=== PATIENT | female | born 1995 | race Two or more races ===

== ENCOUNTER → 2023-05-02 | Outpatient (CLI) | payer BC ==
[2023-05-02 07:44] LABS: Basophils # (auto) 0 10 ^3/uL (0-0.2); Basophils % (auto) 0.2 % (0.0-2.0); Eosinophils # (auto) 0.1 10 ^3/uL (0-0.8); Hematocrit 36.3 % (36.0-46.0); Hemoglobin 12.2 g/dL (12.2-16.2); Lymphocytes % (auto) 19.5 % (10.0-50.0); Mean Corpuscular Hemoglobin 29.8 pg (28.0-32.0); Mean Corpuscular Hgb Conc. 33.5 g/dL (32.0-36.0); Monocytes # (auto) 0.8 10 ^3/uL (0-1.3); Monocytes % (auto) 7.4 % (0.0-12.0); Neutrophils # (auto) 7.5 10 ^3/uL (1.6-8.6); Neutrophils % (auto) 71.9 % (37.0-80.0); Red Blood Cells 4.08 10^6/uL (4.0-5.20); Red Cell Distribution Width 14.5 % (11.8-14.3); White Blood Cell 10.5 10^3/uL (4.4-10.8)
== END | disposition home or self-care (01) ==
LOC: LAB 07:26
PROVIDERS: ATTEND Obstetrics & Gynecology
DX: O99.810 Abnormal glucose complicating pregnancy (principal); Z3A.00 Weeks of gestation of pregnancy not specified
CPT/HCPCS: 36415; 82951; 83036; 85025

== ENCOUNTER 2023-07-19 11:55 | Observation (INO) | payer BC ==
[~2023-07-19] VITALS: Ht 157.5 cm; Wt 75.3 kg
== END 2023-07-19 13:21 | disposition home or self-care (01) ==
LOC: LDRP 11:55 → UNDOADMOB 11:55 → LDRP 12:09
PROVIDERS: ADMIT Obstetrics & Gynecology; ATTEND Obstetrics & Gynecology
DX: O48.0 Post-term pregnancy (principal); Z3A.40 40 weeks gestation of pregnancy
CPT/HCPCS: 59025; 76818; 81002; G0378

== ENCOUNTER 2023-07-21 07:27 | Observation (INO) | payer BC ==
[2023-07-21] MEDS ORDERED: PREN-96 PO (10:28)
== END 2023-07-21 11:30 | disposition home or self-care (01) ==
LOC: LDRP 10:03 → UNDOADMOB 10:03 → LDRP 10:25
PROVIDERS: ADMIT Obstetrics & Gynecology; ATTEND Obstetrics & Gynecology
DX: O48.0 Post-term pregnancy (principal); Z3A.40 40 weeks gestation of pregnancy
CPT/HCPCS: 59025; 76818; 81002; 82948; 94760; G0378

== ENCOUNTER 2023-07-25 10:29 | Observation (INO) | payer BC ==
[~2023-07-25] VITALS: Ht 157.5 cm; Wt 74.8 kg
[~2023-07-25 10:29] MED LIST: PREN-96 PO
[2023-07-25] MEDS ORDERED: LACTATED RINGER'S 1,000 ML IV ONE (12:45)
== END 2023-07-25 14:55 | disposition left against medical advice (07) ==
LOC: LDRP 10:29 → UNDOADMOB 10:29 → LDRP 10:52 → UNDODISOB 14:55
PROVIDERS: ADMIT Obstetrics & Gynecology; ATTEND Obstetrics & Gynecology
DX: O48.0 Post-term pregnancy (principal); Z3A.41 41 weeks gestation of pregnancy
CPT/HCPCS: 59025; 76818; 81002; 94760; 96360; 96361; G0378

== ENCOUNTER 2023-07-28 09:15 | Inpatient (IN) | payer BC ==
[~2023-07-28] VITALS: Ht 157.5 cm; Wt 72.6 kg
[2023-07-28] MEDS ORDERED: BUTORPHANOL TARTRATE 2 MG/1 ML VIAL IV PRN ×2 (09:30)
[2023-07-28] MEDS ORDERED: LIDOCAINE 2%HCL (LOCAL ANESTH.) INJ 20ML MDV IJ PRN (09:30)
[2023-07-28] MEDS ORDERED: miSOPROStol 50 MCG per PRE-CUT 1/2 TAB PO PRN (09:30)
[2023-07-28 10:21] LABS: Amphetamine Screen, Urine Neg (NEGATIVE); Barbiturate Scree,Urine Neg (NEGATIVE); Benzodiazephine Screen, Urine Neg (NEGATIVE); Cannabinoid Screen, Urine Neg (NEGATIVE); Cocaine Screen, Urine Neg (NEGATIVE); Opiate Scree,Urine Neg (NEGATIVE); Phencyclidine Screen, Urine Neg (NEGATIVE)
[2023-07-28 12:05] LABS: Urine Bacteria FEW /hpf (None Seen); Urine Blood Negative /uL (Negative); Urine Clarity Turbid (Clear); Urine Color Yellow (Yellow); Urine Mucus FEW (None Seen); Urine Protein, UAD TRACE (Negative); Urine Specific Gravity 1.024 (1.001-1.035); Urine Urobilinogen Normal (Negative); Urine WBC 1 /hpf (0 - 5)
[2023-07-28 12:11] LABS: Alanine Aminotransferase 11 U/L (7-40); Albumin 3.9 g/dL (3.2-4.8); Alkaline Phosphatase 107 U/L (46-116); Anion Gap 5 (5-15); Aspartate Aminotransferase 22 U/L (13-40); BUN/Creatinine Ratio 17.9 (10.0-20.0); Blood Urea Nitrogen 15 mg/dL (9-23); Calcium 9.2 mg/dL (8.7-10.4); Carbon Dioxide 24 mmol/L (20-30); Chloride 106 mmol/L (98-107); Glucose 112 mg/dL (74-106); Potassium 3.5 mmol/L (3.5-5.1); Sodium 135 mmol/L (136-145)
[2023-07-28 12:12] LABS: Bilirubin, Total 0.3 mg/dL (0.2-1.0); Total Protein 6.1 g/dL (5.7-8.2)
[2023-07-28] MEDS ORDERED: ONDANSETRON HCL 4 MG/2 ML VIAL IV PRN (12:45)
[2023-07-28 13:06] LABS: Basophils # (auto) 0 10 ^3/uL (0-0.2); Basophils % (auto) 0.2 % (0.0-2.0); Eosinophils # (auto) 0.1 10 ^3/uL (0-0.8); Eosinophils % (auto) 0.7 % (0.0-7.0); Hematocrit 38.8 % (36.0-46.0); Hemoglobin 12.7 g/dL (12.2-16.2); Lymphocytes % (auto) 21.7 % (10.0-50.0); Mean Corpuscular Hemoglobin 28.7 pg (28.0-32.0); Mean Corpuscular Hgb Conc. 32.6 g/dL (32.0-36.0); Monocytes # (auto) 0.5 10 ^3/uL (0-1.3); Monocytes % (auto) 5.1 % (0.0-12.0); Neutrophils # (auto) 6.8 10 ^3/uL (1.6-8.6); Neutrophils % (auto) 72.3 % (37.0-80.0); Nucleated Red Blood Cells % 0.1 %; Red Blood Cells 4.41 10^6/uL (4.0-5.20); Red Cell Distribution Width 14.9 % (11.8-14.3); White Blood Cell 9.4 10^3/uL (4.4-10.8)
[2023-07-28] MEDS: LACTATED RINGER'S 1,000 ML IV SCH (13:08)
[2023-07-28 13:17] LABS: INR 0.9 (0.9-1.15); Partial Thromboplastin Time 26.4 SEC (24.5-34.5); Prothrombin Time 9.5 sec (9.3-11.8)
[2023-07-28] MEDS ORDERED: LACT. RINGERS/OXYTOCIN 20UNITS 500 ML IV ONE (18:15)
[2023-07-28] MEDS ORDERED: FAMOTIDINE (10MG/ML) 2ML VL IV PRN (19:00)
[2023-07-28] MEDS: LIDOCAINE 1%-Mpf/Epinephrine 1:200,000 30ml VIAL ONE (19:18)
[2023-07-28] MEDS: fentaNYL CITRATE 100 MCG/2 ML VL IV ONE (19:20)
[2023-07-28] MEDS: ROPIVACAINE HCL 200 ML ONE (19:21)
[2023-07-28] MEDS ORDERED: diphenhdrAMINE HCL 50 MG/1 ML VL IV PRN (19:45)
[2023-07-28] MEDS ORDERED: TERBUTALINE SULFATE 1 MG/ML 1ML VIAL SC PRN (22:15)
[2023-07-28] MEDS: LACT. RINGERS/OXYTOCIN 20UNITS 1,000 ML IV SCH (23:16)
[2023-07-29] MEDS ORDERED: SODIUM CHLORIDE 0.9% 1,000 ML IUPC SCH (04:00)
[2023-07-29] MEDS: WITCH HAZEL-GLYCERIN PAD TOP PRN (05:17)
[2023-07-29] MEDS: DERMOPLAST 60ML BOTTLE TOP PRN (05:17)
[2023-07-29] MEDS: PHISODERM TOP SOLN 240ML BTL TOP PRN (05:17)
[2023-07-29] MEDS: SODIUM CHLORIDE 0.9% 300 ML IUPC ONE (05:30)
[2023-07-29 08:06] LABS: RPR Non Reactive (Non Reactive)
[2023-07-29] MEDS: LACT. RINGERS/OXYTOCIN 20UNITS 500 ML IV ONE ×2 (08:08→09:15)
[2023-07-29] MEDS: LIDOCAINE HCL 2 %PF INJ 10ML AMP IJ ONE (08:16)
[2023-07-29] MEDS: ePHEDrine SULFATE 50 MG/ML AMP IV ONE (08:16)
[2023-07-29] MEDS: NALOXONE HCL 0.4 MG/ML VIAL IV ONE (08:17)
[2023-07-29] MEDS: IBUPROFEN 600 MG TAB PO PRN (10:09)
[2023-07-29 11:00] VITALS: BP 126/69; PULSE 66; RESP 18; TEMP 98.2; O2SAT 97
[2023-07-29] MEDS: ACETAMINOPHEN 325 MG TAB PO PRN (11:24)
[2023-07-29 15:00] VITALS: BP 115/70; PULSE 99; RESP 18; TEMP 98.7; O2SAT 95
[2023-07-29 18:45] VITALS: BP 123/70; PULSE 97; RESP 18; TEMP 98; O2SAT 100
[2023-07-29] MEDS: DOCUSATE SOD 100 MG CAP PO SCH (21:55)
[2023-07-29 23:00] VITALS: BP 138/81; PULSE 90; RESP 16; TEMP 98.1; O2SAT 94
[2023-07-30 03:00] VITALS: BP 124/69; PULSE 90; RESP 16; TEMP 98; O2SAT 95
[2023-07-30 07:30] VITALS: BP 137/73; PULSE 89; RESP 16; TEMP 98.1; O2SAT 98
[2023-07-30 11:30] VITALS: BP_SYST 114; BP_SYST 135; BP_DIAS 73; BP_DIAS 79; PULSE 108; PULSE 80; RESP 16; TEMP 98; O2SAT 96; O2SAT 98
[2023-07-30 14:10] VITALS: BP 115/82; PULSE 79; RESP 18; TEMP 98; O2SAT 98
[2023-08-01 19:06] LABS: Treponema pallidum Ab (FTA-Ab) Non Reactive (Non Reactive)
== END 2023-07-30 14:10 | disposition home or self-care (01) | DRG 807 ==
LOC: LDRP 09:15
PROVIDERS: ADMIT Obstetrics & Gynecology; ATTEND Obstetrics & Gynecology
PROC: 3E0R3BZ Introduction of Anesthetic Agent into Spinal Canal, Percutaneous Approach (ICD-10-PCS; 2023-07-28)
PROC: 00HU33Z Insertion of Infusion Device into Spinal Canal, Percutaneous Approach (ICD-10-PCS; 2023-07-28)
PROC: 10E0XZZ Delivery of Products of Conception, External Approach (ICD-10-PCS; principal; 2023-07-29)
PROC: 0HQ9XZZ Repair Perineum Skin, External Approach (ICD-10-PCS; 2023-07-29)
DX: O48.0 Post-term pregnancy (principal); Z37.0 Single live birth; O69.81X0 Labor and delivery complicated by cord around neck, without compression, not applicable or unspecified; O70.0 First degree perineal laceration during delivery; Z3A.41 41 weeks gestation of pregnancy
CPT/HCPCS: 36415; 59025; 59200; 59409; 80053; 80307; 81001; 81002; 85025; 85610; 85730; 86592; 86803; 86850; 86900; 86901; 94760; 96360; 96361; 96365; 96366; G0378; J2590